=== PATIENT | female | born 1965 | race Caucasian/White ===

== ENCOUNTER → 2023-07-08 17:04 | Outpatient (REF) | payer BC, SELFPAY | LOC: HWRAD 17:04 | PROVIDERS: ATTENDING PHYSICIAN Physician Assistant Medical | DX: M25.561 Pain in right knee (principal) | CPT/HCPCS: 73564 ==

== ENCOUNTER → 2023-10-08 08:43 | Outpatient (REF) | payer BC, SELFPAY | LOC: HWRAD 08:43 | PROVIDERS: ATTENDING PHYSICIAN Physician Assistant; FAMILY PHYSICIAN Physician Assistant Medical | DX: Z86.39 Personal history of other endocrine, nutritional and metabolic disease (principal) | CPT/HCPCS: 76536 ==

== ENCOUNTER → 2023-10-21 10:52 | Outpatient (REF) | payer BC, SELFPAY | LOC: HWWDC 10:52 | PROVIDERS: ATTENDING PHYSICIAN Physician Assistant; FAMILY PHYSICIAN Physician Assistant Medical | DX: Z12.31 Encounter for screening mammogram for malignant neoplasm of breast (principal) | CPT/HCPCS: 77063; 77067 ==

== ENCOUNTER 2024-03-23 18:01 | Emergency (ER) | payer SELFPAY ==
[2024-03-23 18:01] VITALS: BMI 34.0
[2024-03-23 18:22] VITALS: BP 131/97
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
[2024-03-23] MEDS: TYLENOL 1000 MG PO (20:37)
[2024-03-23 23:08] VITALS: BP 163/95
== END 2024-03-23 23:09 | disposition home or self-care (01) ==
LOC: EMR 18:01
PROVIDERS: EMERGENCY PHYSICIAN Student in an Organized Health Care Education/Training Program; FAMILY PHYSICIAN Physician Assistant Medical
DX: S16.1XXA Strain of muscle, fascia and tendon at neck level, initial encounter (principal); I25.10 Atherosclerotic heart disease of native coronary artery without angina pectoris; V43.52XA Car driver injured in collision with other type car in traffic accident, initial encounter; Y92.410 Unspecified street and highway as the place of occurrence of the external cause; E11.9 Type 2 diabetes mellitus without complications; E78.00 Pure hypercholesterolemia, unspecified; I10 Essential (primary) hypertension; Z79.4 Long term (current) use of insulin
CPT/HCPCS: 99284; 70450; 72125; 72128

== ENCOUNTER → 2024-05-12 18:28 | Outpatient (REF) | payer OTHER, BC, SELFPAY | LOC: MRI 18:28 | PROVIDERS: ATTENDING PHYSICIAN Physician Assistant Medical | DX: F07.81 Postconcussional syndrome (principal); R68.89 Other general symptoms and signs; R51.9 Headache, unspecified | CPT/HCPCS: 70553; A9575 ==

== ENCOUNTER → 2024-08-21 18:05 | Outpatient (REF) | payer BC, SELFPAY | LOC: MRI 18:05 | PROVIDERS: ATTENDING PHYSICIAN Neurological Surgery; FAMILY PHYSICIAN Physician Assistant Medical | DX: G44.301 Post-traumatic headache, unspecified, intractable (principal); M54.2 Cervicalgia; S06.0X0A Concussion without loss of consciousness, initial encounter; F07.81 Postconcussional syndrome | CPT/HCPCS: 72141 ==